=== PATIENT | female | born 1995 | race African-American/Black ===

== ENCOUNTER 2024-01-10 12:23 | Inpatient (IN) | payer OTHER ==
[2024-01-11] MEDS ORDERED: HYDROcodone/Acetaminophen 5/325 mg Tablet PO PRN (07:35)
[2024-01-11] MEDS ORDERED: hydrALAZINE 20 MG/ML VIAL SLOW IVP PRN ×2 (07:35→22:28)
[2024-01-11] MEDS ORDERED: Promethazine HCl 25 MG/ML VIAL IM PRN ×3 (07:35→22:28)
[2024-01-11] MEDS ORDERED: Acetaminophen 500 MG TAB PO PRN (07:35)
[2024-01-11] MEDS ORDERED: Ibuprofen 800 MG TAB PO PRN (07:35)
[2024-01-11] MEDS ORDERED: Oxytocin 30 units/NS 500 ML 500 ML IV SCH (07:35)
[2024-01-11] MEDS ORDERED: Lidocaine 1% (PF) 30 ML VIAL SC PRN (07:35)
[2024-01-11] MEDS ORDERED: fentaNYL 50 mcg/mL 1 mL Vial SLOW IVP PRN (07:35)
[2024-01-11 07:37] VITALS: BMI 41.8
[2024-01-11 08:06] LABS: Hematocrit 38.3 % (34.9-44.5); Hemoglobin 13.7 g/dL (12.0-15.5); Mean Corpuscular HGB CONC 35.8 g/dL (32.0-36.0); Mean Corpuscular Hemoglobin 33.5 pg (27.0-33.0); Mean Corpuscular Volume 93.6 fL (81.6-98.3); Platelet Count 144 10x3/uL (150-450); RBC Distribution Width 15.3 % (11.5-14.5); Red Blood Cell (RBC) Count 4.09 10x6/uL (3.90-5.03); White Blood Cell (WBC) Count 10.4 10x3/uL (3.5-10.5)
[2024-01-11] MEDS: Oxytocin 30 units/NS 500 ML 500 ML IV SCH ×2 (08:08→16:25)
[2024-01-11 08:45] LABS: Syphilis Antibody Nonreactive (Nonreactive); Syphilis Antibody Index 0.04 S/CO (<1.00 Non-Reactive)
[2024-01-11] MEDS: Lactated Ringer's 1,000 ML IV SCH (09:00)
[2024-01-11 09:03] LABS: HBsAg Index 0.15 S/CO (0-0.99); Hep B Surf Ag - L&D Non-Reactive S/CO (NonReactive)
[2024-01-11] MEDS ORDERED: Ondansetron PF 4 MG/2 ML Vial IVP PRN ×2 (09:06→22:28)
[2024-01-11] MEDS ORDERED: Naloxone HCl 0.4 mg/ml Vial IVP PRN ×2 (09:06)
[2024-01-11] MEDS ORDERED: Lactated Ringer's 500 ML IV PRN (09:06)
[2024-01-11] MEDS ORDERED: Acetaminophen 325 MG TAB PO PRN (09:06)
[2024-01-11] MEDS ORDERED: Moisturizing Cream (Eucerin) 113 GM JAR TOP PRN (09:06)
[2024-01-11] MEDS ORDERED: diphenhydrAMINE 50 MG/ML VIAL IVP PRN (09:06)
[2024-01-11] MEDS ORDERED: ePHEDrine Sulfate 50 MG/10 ML VIAL SLOW IVP PRN (09:06)
[2024-01-11] MEDS ORDERED: Communication Order-Pharmacy FS SCH (09:15)
[2024-01-11] MEDS: fentaNYL/Ropivacaine Epidural 100 ML ONE (09:22)
[2024-01-11] MEDS: Carboprost 250 MCG/ML AMP IM PRN (17:34)
[2024-01-11] MEDS: Diphenoxylate HCl/Atropine Tablet PO PRN (17:35)
[2024-01-11] MEDS: Methylergonovine 0.2 MG/ML VIAL IM PRN (17:38)
[2024-01-11] MEDS: Oxytocin 10 UNITS/ML VIAL ONE (17:42)
[2024-01-11] MEDS: Misoprostol 200 MCG TAB PR PRN (17:47)
[2024-01-11] MEDS: Tranexamic Acid 1,000 MG/10 ML VIAL IVP PRN (17:48)
[2024-01-11] MEDS ORDERED: Tranexamic Acid 1,000 MG/10 ML VIAL ONE (18:20)
[2024-01-11] MEDS: Tranexamic Acid 1,000 MG/10 ML VIAL IVP SCH (18:48)
[2024-01-11] MEDS: Ondansetron PF 4 MG/2 ML Vial IVP PRN (19:06)
[2024-01-11 19:30] LABS: D-Dimer Test 4.25 mcg/mL (0.19-0.50); PTT 27.2 sec (22.0-33.0); Prothrombin Time 10.8 sec (9.5-12.1)
[2024-01-11] MEDS ORDERED: Azithromycin 500 MG in Sodium Chloride 0.9% 250 ML 250 ML IVPB SCH (19:45)
[2024-01-11] MEDS ORDERED: diphenhydrAMINE 25 MG CAP PO PRN (22:28)
[2024-01-11] MEDS ORDERED: Milk Of Magnesia 30 ML UDCUP PO PRN (22:28)
[2024-01-11] MEDS ORDERED: Boostrix 0.5 ML (Tdap) VIAL (>/=7 yrs of age) IM ONE (22:28)
[2024-01-11] MEDS ORDERED: Bisacodyl 10 MG SUPP PR PRN (22:28)
[2024-01-11] MEDS: CEFAZOLIN 2 GM in Sodium Chloride 0.9% 100 ML IVPB SCH (22:35)
[2024-01-11 22:44] LABS: Hematocrit 31.3 % (34.9-44.5); Hemoglobin 10.7 g/dL (12.0-15.5); Mean Corpuscular HGB CONC 34.2 g/dL (32.0-36.0); Mean Corpuscular Hemoglobin 33.1 pg (27.0-33.0); Mean Corpuscular Volume 96.9 fL (81.6-98.3); Mean Platelet Volume 11.5 fL (7.4-10.4); Platelet Count 127 10x3/uL (150-450); RBC Distribution Width 15.7 % (11.5-14.5); Red Blood Cell (RBC) Count 3.23 10x6/uL (3.90-5.03); White Blood Cell (WBC) Count 18.2 10x3/uL (3.5-10.5)
[2024-01-11] MEDS: metroNIDAZOLE 500 MG in Premix 1 BAG IVPB SCH (23:43)
[2024-01-12] MEDS: fentaNYL 2 mcg/Ropivacaine 0.2% Epidural 100 ML CADD EPIDURAL SCH (07:23)
[2024-01-12 07:33] LABS: Hematocrit 27.7 % (34.9-44.5); Hemoglobin 9.6 g/dL (12.0-15.5); Mean Corpuscular HGB CONC 34.7 g/dL (32.0-36.0); Mean Corpuscular Hemoglobin 33.2 pg (27.0-33.0); Mean Corpuscular Volume 95.8 fL (81.6-98.3); Mean Platelet Volume 11.8 fL (7.4-10.4); Platelet Count 118 10x3/uL (150-450); RBC Distribution Width 15.9 % (11.5-14.5); Red Blood Cell (RBC) Count 2.89 10x6/uL (3.90-5.03); White Blood Cell (WBC) Count 17.1 10x3/uL (3.5-10.5)
[2024-01-12] MEDS: Docusate 100 MG CAP PO SCH ×2 (11:53→17:43)
[2024-01-12] MEDS: Prenatal Vitamin 1 TAB PO SCH (11:53)
[2024-01-12] MEDS: HYDROcodone/Acetaminophen 5/325 mg Tablet PO PRN (11:53)
[2024-01-12] MEDS: Ferrous Sulfate 325 MG TAB PO SCH (11:53)
[2024-01-12] MEDS: Benzocaine-Menthol 82.5 ML CAN TOP PRN (11:55)
[2024-01-12] MEDS: Ibuprofen 800 MG TAB PO SCH ×2 (17:43→17:44)
[2024-01-12] MEDS: Carboprost 250 MCG/ML AMP ONE (17:43)
[2024-01-12] MEDS: Carboprost 250 MCG/ML AMP IM SCH (17:43)
[2024-01-14 08:07] VITALS: BP 106/61; TEMP 98.5
== END 2024-01-14 16:40 | disposition home or self-care (01) | DRG 768 ==
LOC: CSHLD 01-11 06:10 → CSHPP 01-12 10:25
PROVIDERS: ADMIT Family Medicine; ATTEND Family Medicine
PROC: 10E0XZZ Delivery of Products of Conception, External Approach (ICD-10-PCS; principal; 2024-01-11)
PROC: 0W3R7ZZ Control Bleeding in Genitourinary Tract, Via Natural or Artificial Opening (ICD-10-PCS; 2024-01-11)
PROC: 0KQM0ZZ Repair Perineum Muscle, Open Approach (ICD-10-PCS; 2024-01-11)
PROC: 10907ZC Drainage of Amniotic Fluid, Therapeutic from Products of Conception, Via Natural or Artificial Opening (ICD-10-PCS; 2024-01-11)
PROC: 3E033XZ Introduction of Vasopressor into Peripheral Vein, Percutaneous Approach (ICD-10-PCS; 2024-01-11)
DX: O99.214 Obesity complicating childbirth (principal); Z37.0 Single live birth; E66.01 Morbid (severe) obesity due to excess calories; O76 Abnormality in fetal heart rate and rhythm complicating labor and delivery; O71.4 Obstetric high vaginal laceration alone; Z3A.39 39 weeks gestation of pregnancy; O72.1 Other immediate postpartum hemorrhage
CPT/HCPCS: 36415; 51702; 85027; 85049; 85300; 85362; 85384; 85610; 85730; 86780; 86850; 86900; 86901; 87340; J2210; J2405; J2590; J3490; J7050; J7120